=== PATIENT | male | born 1955 | race Caucasian/White ===

== ENCOUNTER → 2016-10-08 | Outpatient (CLI) | payer BC ==
--- NOTE | 2016-10-08 16:14 | CR ---
EXAMINATION: Left knee HISTORY: Pain COMPARISON: None TECHNIQUE: 4 views FINDINGS/IMPRESSION: There is no acute osseous abnormality, dislocation, or fracture identified. Bon e mineralization and joint spaces appear normal. No soft tissue swelling or joint effusion.
== END ==
LOC: MW.CHORTHO 08:05
PROVIDERS: ATTEND Physician Assistant
DX: M25.562 Pain in left knee (principal)
CPT/HCPCS: 73564-26-LT; 73564-LT

== ENCOUNTER 2017-01-11 09:22 | Emergency (ER) | payer BC ==
--- NOTE | 2017-01-11 09:38 | EDM.PDOC ---
ED HPI GENERAL MEDICAL PROBLEM - General Chief Complaint: ENT Problem Stated Complaint: SORE THROAT Time Seen by Provider: 01/11/17 09:37 Source of Information: Reports: Patient - History of Present Illness INITIAL COMMENTS - FREE TEXT/NARRATIVE: HISTORY AND PHYSICAL: History of present illness: []Patient has sore throat and productive cough increasing in severity over the last week , some difficulty with solid food no difficulty with liquid Smoking history No fever nausea vomiting chills sweats no hot potato voice drooling or trismus Review of systems: As per history of present illness and below otherwise all systems reviewed and negative. Past medical history: As per history of present illness and as reviewed below otherwise noncontributory. Surgical history: As per history of present illness and as reviewed below otherwise noncontributory. Social history: No reported history of drug or alcohol abuse. Family history: As per history of present illness and as reviewed below otherwise noncontributory. Physical exam: HEENT: Atraumatic, normocephalic, pupils reactive, negative for conjunctival pallor or scleral icterus, mucous membranes moist, throat clear, neck supple, nontender, trachea midline. Moderate erythema and oropharynx no exudate Lungs: Clear to auscultation, breath sounds equal bilaterally, chest nontender. Heart: S1S2, regular, negative for clicks, rubs, or JVD. Abdomen: Soft, nondistended, nontender. Negative for masses or hepatosplenomegaly. Negative for costovertebral tenderness. Pelvis: Stable nontender. Genitourinary: Deferred. Rectal: Deferred. Extremities: Atraumatic, negative for cords or calf pain. Neurovascular unremarkable. Neuro: Awake, alert, oriented. Cranial nerves II through XII unremarkable. Cerebellum unremarkable. Motor and sensory unremarkable throughout. Exam nonfocal. Diagnostics: []Chest 2 views Therapeutics: []Z-Shay 250 mg dosing Impression: []Acute pharyngitis/bronchitis Definitive disposition and diagnosis as appropriate pending reevaluation and review of above. throat Pain Score (Numeric/FACES): 8 - Related Data Allergies Allergy/AdvReac Type Severity Reaction Status Date / Time No Known Allergies Allergy Verified 01/11/17 09:32 Home Meds: Home Meds . [No Known Home Meds] 01/11/17 [History] ED ROS GENERAL - Review of Systems Review Of Systems: ROS reveals no pertinent complaints other than HPI. ED EXAM, GENERAL - Physical Exam Exam: See Below Course - Vital Signs Last Recorded V/S: Last Vital Signs Temp 36.3 C 01/11/17 09:32 Pulse 61 01/11/17 09:32 Resp 16 01/11/17 09:32 BP 141/77 H 01/11/17 09:32 Pulse Ox 94 L 01/11/17 09:32 - Orders/Labs/Meds Orders: Active Orders 24 hr Category Date Time Status Chest 2V [CR] Stat Exams 01/11/17 09:37 Taken CULTURE STREP A CONFIRMATION [RM] Stat Lab 01/11/17 09:41 Results STREP SCRN A RAPID W CULT CONF [RM] Stat Lab 01/11/17 09:41 Results Departure - Departure Time of Disposition: 10:04 Disposition: Home, Self-Care 01 Condition: Good Clinical Impression: Pharyngitis - Discharge Information Forms: ED Department Discharge Additional Instructions: Medication as prescribed Return if symptoms persist or worsen Follow-up with primary care in 2 weeks sooner as needed The following information is given to patients seen in the emergency department who are being discharged to home. This information is to outline your options for follow-up care. We provide all patients seen in our emergency department with a follow-up referral. The need for follow-up, as well as the timing and circumstances, are variable depending upon the specifics of your emergency department visit. If you don't have a primary care physician on staff, we will provide you with a referral. We always advise you to contact your personal physician following an emergency department visit to inform them of the circumstance of the visit and for follow-up with them and/or the need for any referrals to a consulting specialist. The emergency department will also refer you to a specialist when appropriate. This referral assures that you have the opportunity for follow-up care with a specialist. All of these measure are taken in an effort to provide you with optimal care, which includes your follow-up. Under all circumstances we always encourage you to contact your private physician who remains a resource for coordinating your care. When calling for follow-up care, please make the office aware that this follow-up is from your recent emergency room visit. If for any reason you are refused follow-up, please contact the [facility] emergency department at and asked to speak to the emergency department charge nurse. - My Orders Last 24 Hours: My Active Orders 01/11/17 09:37 Chest 2V [CR] Stat 01/11/17 09:41 CULTURE STREP A CONFIRMATION [RM] Stat STREP SCRN A RAPID W CULT CONF [RM] Stat - Assessment/Plan Last 24 Hours: My Active Orders 01/11/17 09:37 Chest 2V [CR] Stat 01/11/17 09:41 CULTURE STREP A CONFIRMATION [RM] Stat STREP SCRN A RAPID W CULT CONF [RM] Stat
[2017-01-11 10:18] VITALS: BP 128/71
--- NOTE | 2017-01-13 14:48 | CR ---
EXAM DATE: 01/11/17 PATIENT'S AGE: 61 Patient: JESSICA MORGAN Facility: [place], [place] Site . Site : 1955 Study: XRay Chest [id number]/19/2017 9:56:51 AM Ordering Physician: Tim Bryan Final Report: Indication: Anterior chest pain, shortness of breath. Comparison: None. Findings: Degenerative changes are noted of the visualized acromial clavicular joints. The bony thorax is normally mineralized. Cardiac silhouette is mildly narrowed with attenuation of the central pulmonary vasculature. The lungs are mildly hyperaerated. These aforementioned findings may reflect underlying emphysema or pulmonary artery hypertension. No focal infiltrates, abnormal pulmonary nodules masses are identified. There are no pleural effusions. Impression: 1. Questionable underlying emphysema and/or pulmonary artery hypertension as evidenced by mild hyperaeration of the lungs, narrowing of the mediastinum and attenuation of the central pulmonary vasculature. 2. No acute pulmonary infiltrates Dictated by Deepthi Rodriguez MD @ Jan 11 2017 10:12AM (Electronic Signature) Report Signed by Proxy. [facility] CENTERClemente
== END 2017-01-11 10:13 | disposition home or self-care (01) ==
LOC: MW.ED 09:22
DX: J02.9 Acute pharyngitis, unspecified (principal)
CPT/HCPCS: 71020; 71020-26; 87081; 87880; 99282; 99283

== ENCOUNTER 2018-06-18 07:16 | Emergency (ER) | payer MEDICARE, BC ==
[2018-06-18] MEDS ORDERED: Albuterol/Ipratropium 3.0-0.5 MG/3 ML Neb Soln NEB ONE (07:42)
[2018-06-18] MEDS ORDERED: Aspirin 81 MG Tab.Chew PO ONE (07:42)
[2018-06-18] MEDS ORDERED: Sodium Chloride 0.9% 10 ML Syringe FLUSH PRN (07:42)
[2018-06-18] MEDS ORDERED: Sodium Chloride 0.9% 2.5 ML Syringe FLUSH PRN (07:42)
[2018-06-18] MEDS ORDERED: Sodium Chloride 0.9% 1,000 ML IV SCH (07:45)
--- NOTE | 2018-06-18 07:45 | EDM.PDOC ---
ED HPI GENERAL MEDICAL PROBLEM - General Chief Complaint: Respiratory Problem Stated Complaint: CONGESTION Time Seen by Provider: 06/18/18 07:39 - History of Present Illness INITIAL COMMENTS - FREE TEXT/NARRATIVE: HISTORY AND PHYSICAL: History of present illness: Patient is a 63-year-old white male who presents with concern of cough and congestion he's had some shoulder chest pain since he states his only with the cough he denies any known cardiac disease or other concerns had some mild shortness of breath he denies diaphoresis palpitations fever or chills he denies influenza immunization this year patient has long history of smoking but states he quit 3 years prior Review of systems: As per history of present illness and below otherwise all systems reviewed and negative. Past medical history: As per history of present illness and as reviewed below otherwise noncontributory. Surgical history: As per history of present illness and as reviewed below otherwise noncontributory. Social history: No reported history of drug or alcohol abuse. Family history: As per history of present illness and as reviewed below otherwise noncontributory. Physical exam: HEENT: Atraumatic, normocephalic, pupils reactive, negative for conjunctival pallor or scleral icterus, mucous membranes moist, throat clear, neck supple, nontender, trachea midline. Lungs: Slightly coarse breath sounds diminished, breath sounds equal bilaterally , chest nontender. Heart: S1S2, regular, negative for clicks, rubs, or JVD. Abdomen: Soft, nondistended, nontender. Negative for masses or hepatosplenomegaly. Negative for costovertebral tenderness. Pelvis: Stable nontender. Genitourinary: Deferred. Rectal: Deferred. Extremities: Atraumatic, negative for cords or calf pain. Neurovascular unremarkable. Neuro: Awake, alert, oriented. Cranial nerves II through XII unremarkable. Cerebellum unremarkable. Motor and sensory unremarkable throughout. Exam nonfocal. Diagnostics: CBC CMP troponin PT/INR influenza screen chest x-ray EKG BNP Therapeutics: IV O2 monitor albuterol ipratropium nebulizer aspirin 324 mg Impression: #1 dyspnea #2 probable viral syndrome Definitive disposition and diagnosis as appropriate pending reevaluation and review of above. pain with coughing Pain Score (Numeric/FACES): 6 - Related Data Allergies Allergy/AdvReac Type Severity Reaction Status Date / Time No Known Allergies Allergy Verified 06/18/18 07:31 Home Meds: Home Meds . [No Known Home Meds] 01/11/17 [History] Past Medical History - Past Health History Medical/Surgical History: Denies Medical/Surgical History - Infectious Disease History Infectious Disease History: Reports: Chicken Pox Social & Family History - Family History Family Medical History: Noncontributory - Tobacco Use Smoking Status *Q: Former Smoker Used Tobacco, but Quit: Yes Month/Year Tobacco Last Used: 2016 - Caffeine Use Caffeine Use: Reports: Coffee - Recreational Drug Use Recreational Drug Use: No ED ROS GENERAL - Review of Systems Review Of Systems: ROS reveals no pertinent complaints other than HPI. ED EXAM, GENERAL - Physical Exam Exam: See Below (See dictation) Course - Vital Signs Text/Narrative:: I reviewed diagnostics with patient and suggested admission for observation patient declines he does agree to outpatient treatment informed antibiotics and albuterol and does also understand the need for follow-up with clinic and/or primary care doctor for the atypical nature of the discomfort he's had. He'll return as needed as discussed impression is #1 tracheobronchitis #2 atypical chest pain Last Recorded V/S: Last Vital Signs Temp 36.1 C 06/18/18 07:26 Pulse 65 06/18/18 08:20 Resp 18 06/18/18 08:20 BP 158/78 H 06/18/18 08:20 Pulse Ox 94 L 06/18/18 08:20 - Orders/Labs/Meds Orders: Active Orders 24 hr Category Date Time Status Cardiac Monitoring [RC] . DIRECTED Care 06/18/18 07:40 Active EKG Documentation Completion [RC] STAT Care 06/18/18 07:40 Active Pulse Oximetry [RC] ASDIRECTED Care 06/18/18 07:40 Active RT Aerosol Therapy [RC] ASDIRECTED Care 06/18/18 07:43 Active Sodium Chloride 0.9% [Normal Saline] 1,000 ml Med 06/18/18 07:45 Active IV STAT Sodium Chloride 0.9% [Saline Flush] Med 06/18/18 07:42 Active 10 ml FLUSH ASDIRECTED PRN Sodium Chloride 0.9% [Saline Flush] Med 06/18/18 07:42 Active 2.5 ml FLUSH ASDIRECTED PRN Saline Lock Insert [OM.PC] Stat Oth 06/18/18 07:40 Ordered Medication Orders Sodium Chloride (Normal Saline) 1,000 mls @ 125 mls/hr IV STAT UMAIR Last Admin: 06/18/18 08:18 Dose: 125 mls/hr Sodium Chloride (Saline Flush) 10 ml FLUSH ASDIRECTED PRN PRN Reason: Keep Vein Open Sodium Chloride (Saline Flush) 2.5 ml FLUSH ASDIRECTED PRN PRN Reason: Keep Vein Open Labs: Laboratory Tests 06/18/18 06/18/18 06/18/18 Range/Units 07:53 07:53 07:53 WBC 9.77 (4.0-11.0) K/uL RBC 4.91 (4.50-5.90) M/uL Hgb 16.6 (13.0-17.0) g/dL Hct 45.5 (38.0-50.0) % MCV 92.7 (80.0-98.0) fL MCH 33.8 H (27.0-32.0) pg MCHC 36.5 (31.0-37.0) g/dL RDW Std Deviation 43.2 (28.0-62.0) fl RDW Coeff of Rudy 13 (11.0-15.0) % Plt Count 212 (150-400) K/uL MPV 10.60 (7.40-12.00) fL Neut % (Auto) 74.0 (48.0-80.0) % Lymph % (Auto) 12.5 L (16.0-40.0) % [place] % (Auto) 11.6 (0.0-15.0) % Eos % (Auto) 1.4 (0.0-7.0) % Baso % (Auto) 0.5 (0.0-1.5) % Neut # (Auto) 7.2 H (1.4-5.7) K/uL Lymph # (Auto) 1.2 (0.6-2.4) K/uL [place] # (Auto) 1.1 H (0.0-0.8) K/uL Eos # (Auto) 0.1 (0.0-0.7) K/uL Baso # (Auto) 0.1 (0.0-0.1) K/uL Nucleated RBC % 0.0 /100WBC Nucleated RBCs # 0 K/uL INR 1.04 Sodium 136 (136-148) mmol/L Potassium 4.3 (3.5-5.1) mmol/L Chloride 101 (98-107) mmol/L Carbon Dioxide 23.2 (21.0-32.0) mmol/L BUN 19 H (7.0-18.0) mg/dL Creatinine 1.0 (0.8-1.3) mg/dL Est Cr Clr Drug Dosing 80.83 mL/min Estimated GFR (MDRD) > 60.0 ml/min Glucose 138 H (74-106) mg/dL Calcium 9.5 (8.5-10.1) mg/dL Total Bilirubin 1.3 H (0.2-1.0) mg/dL AST 28 (15-37) IU/L ALT 33 (14-63) IU/L Alkaline Phosphatase 78 (46-116) U/L Troponin I < 0.050 (0.000-0.056) ng/mL B-Natriuretic Peptide (<100) PG/ML Total Protein 7.9 (6.4-8.2) g/dL Albumin 3.9 (3.4-5.0) g/dL Globulin 4.0 (2.6-4.0) g/dL Albumin/Globulin Ratio 1.0 (0.9-1.6) 06/18/18 Range/Units 07:53 WBC (4.0-11.0) K/uL RBC (4.50-5.90) M/uL Hgb (13.0-17.0) g/dL Hct (38.0-50.0) % MCV (80.0-98.0) fL MCH (27.0-32.0) pg MCHC (31.0-37.0) g/dL RDW Std Deviation (28.0-62.0) fl RDW Coeff of Rudy (11.0-15.0) % Plt Count (150-400) K/uL MPV (7.40-12.00) fL Neut % (Auto) (48.0-80.0) % Lymph % (Auto) (16.0-40.0) % [place] % (Auto) (0.0-15.0) % Eos % (Auto) (0.0-7.0) % Baso % (Auto) (0.0-1.5) % Neut # (Auto) (1.4-5.7) K/uL Lymph # (Auto) (0.6-2.4) K/uL [place] # (Auto) (0.0-0.8) K/uL Eos # (Auto) (0.0-0.7) K/uL Baso # (Auto) (0.0-0.1) K/uL Nucleated RBC % /100WBC Nucleated RBCs # K/uL INR Sodium (136-148) mmol/L Potassium (3.5-5.1) mmol/L Chloride (98-107) mmol/L Carbon Dioxide (21.0-32.0) mmol/L BUN (7.0-18.0) mg/dL Creatinine (0.8-1.3) mg/dL Est Cr Clr Drug Dosing mL/min Estimated GFR (MDRD) ml/min Glucose (74-106) mg/dL Calcium (8.5-10.1) mg/dL Total Bilirubin (0.2-1.0) mg/dL AST (15-37) IU/L ALT (14-63) IU/L Alkaline Phosphatase (46-116) U/L Troponin I (0.000-0.056) ng/mL B-Natriuretic Peptide 24 (<100) PG/ML Total Protein (6.4-8.2) g/dL Albumin (3.4-5.0) g/dL Globulin (2.6-4.0) g/dL Albumin/Globulin Ratio (0.9-1.6) Meds: Medications Generic Name Dose Route Start Last Admin Trade Name Freq PRN Reason Stop Dose Admin Sodium Chloride 1,000 mls @ 125 mls/hr 06/18/18 07:45 06/18/18 08:18 Normal Saline IV 125 mls/hr STAT UMAIR Administration Sodium Chloride 10 ml 06/18/18 07:42 Saline Flush FLUSH ASDIRECTED PRN Keep Vein Open Sodium Chloride 2.5 ml 06/18/18 07:42 Saline Flush FLUSH ASDIRECTED PRN Keep Vein Open Discontinued Medications Generic Name Dose Route Start Last Admin Trade Name Freq PRN Reason Stop Dose Admin Albuterol/Ipratropium 3 ml 06/18/18 07:42 06/18/18 08:10 Duoneb 3.0-0.5 Mg/3 Ml NEB 06/18/18 07:43 3 ml ONETIME ONE Administration Aspirin 324 mg 06/18/18 07:42 06/18/18 08:32 Aspirin PO 06/18/18 07:43 324 mg ONETIME ONE Administration Departure - Departure Time of Disposition: Disposition: Home, Self-Care 01 Condition: Good Clinical Impression: Tracheobronchitis, Atypical chest pain - Discharge Information Referrals: PCP,None [Primary Care Provider] - Forms: ED Department Discharge Additional Instructions: The following information is given to patients seen in the emergency department who are being discharged to home. This information is to outline your options for follow-up care. We provide all patients seen in our emergency department with a follow-up referral. The need for follow-up, as well as the timing and circumstances, are variable depending upon the specifics of your emergency department visit. If you don't have a primary care physician on staff, we will provide you with a referral. We always advise you to contact your personal physician following an emergency department visit to inform them of the circumstance of the visit and for follow-up with them and/or the need for any referrals to a consulting specialist. The emergency department will also refer you to a specialist when appropriate. This referral assures that you have the opportunity for followup care with a specialist. All of these measure are taken in an effort to provide you with optimal care, which includes your followup. Under all circumstances we always encourage you to contact your private physician who remains a resource for coordinating your care. When calling for followup care, please make the office aware that this follow-up is from your recent emergency room visit. If for any reason you are refused follow-up, please contact the [facility] emergency department at and asked to speak to the emergency department charge nurse. [facility] [address] [place] [id number] Augmentin and albuterol as prescribed follow-up clinic above: Schedule routine appointment and return as needed as discussed - My Orders Last 24 Hours: My Active Orders 06/18/18 07:40 Cardiac Monitoring [RC] . DIRECTED EKG Documentation Completion [RC] STAT Pulse Oximetry [RC] ASDIRECTED Saline Lock Insert [OM.PC] Stat 06/18/18 07:42 Sodium Chloride 0.9% [Saline Flush] 10 ml FLUSH ASDIRECTED PRN Sodium Chloride 0.9% [Saline Flush] 2.5 ml FLUSH ASDIRECTED PRN 06/18/18 07:43 RT Aerosol Therapy [RC] ASDIRECTED 06/18/18 07:45 Sodium Chloride 0.9% [Normal Saline] 1,000 ml IV STAT - Assessment/Plan Last 24 Hours: My Active Orders 06/18/18 07:40 Cardiac Monitoring [RC] . DIRECTED EKG Documentation Completion [RC] STAT Pulse Oximetry [RC] ASDIRECTED Saline Lock Insert [OM.PC] Stat 06/18/18 07:42 Sodium Chloride 0.9% [Saline Flush] 10 ml FLUSH ASDIRECTED PRN Sodium Chloride 0.9% [Saline Flush] 2.5 ml FLUSH ASDIRECTED PRN 06/18/18 07:43 RT Aerosol Therapy [RC] ASDIRECTED 06/18/18 07:45 Sodium Chloride 0.9% [Normal Saline] 1,000 ml IV STAT
--- NOTE | 2018-06-18 08:22 | CR ---
INDICATION: Cough and shortness of breath TECHNIQUE: Chest 1 views COMPARISON: January 11, 2017 FINDINGS: Cardiovascular and mediastinum: Heart size and vasculature are normal in caliber and appearance. Lungs and pleural spaces: Lungs are clear. No sign of infiltrate or mass. No sign of pleural effusion. No pneumothorax. Bones and soft tissues: No significant findings. IMPRESSION: Unremarkable chest. No sign of acute cardiopulmonary disease. Dictated by Edwin Garaz MD @ Jun 18 2018 8:18AM Signed by Dr. Edwin Garza @ Jun 18 2018 8:19AM
[2018-06-18 08:46] LABS: CHLORIDE,CL 101 mmol/L (98-107); SODIUM,NA 136 mmol/L (136-148)
[2018-06-18 12:00] VITALS: BP 180/90
== END 2018-06-18 09:50 | disposition home or self-care (01) ==
LOC: MW.ED 07:16
DX: J40 Bronchitis, not specified as acute or chronic (principal); Z87.891 Personal history of nicotine dependence
CPT/HCPCS: 36415; 71045; 71045-26; 80053; 83880; 84484; 85025; 85610; 87804; 93005; 94640; 96360; 96361; 99285-25; A9270-GY; J7040; J7620-GY